=== PATIENT | male | born 1950 | race Caucasian/White ===

== ENCOUNTER 2019-08-29 05:34 | Emergency (ER) | payer MEDICARE, BC ==
[2019-08-29] MEDS ORDERED: ONDANSETRON HCL INJ/PF 4 MG/2 ML SDV IV ONE (06:14)
[2019-08-29] MEDS ORDERED: FENTANYL CITRATE INJ/PF 100 MCG/2 ML AMPUL IV ONE (06:14)
[2019-08-29 06:25] LABS: ABSOLUTE MONOCYTES (AUTO) 0.8 10^3/uL (0.1-1.4); ABSOLUTE NEUT (AUTO) 7.2 10^3/uL (1.7-8.2); BASOPHILS % (AUTO) 0.4 % (0-2); EOSINOPHILS % (AUTO) 0.4 % (0-6); HEMATOCRIT 42.4 % (37.9-51.0); HEMOGLOBIN 14.4 g/dL (13.5-17.0); LYMPHOCYTES % (AUTO) 10.7 % (13-45); MEAN CORPUSCULAR HEMOGLOBIN 34.6 pg (27.0-33.4); MEAN CORPUSCULAR HGB CONC 33.9 g/dL (32.0-36.0); MEAN CORPUSCULAR VOLUME 102 fl (80-97); MONOCYTES % (AUTO) 8.6 % (3-13); PLATELET COUNT 194 10^3/uL (150-450); RED BLOOD COUNT 4.15 10^6/uL (4.35-5.55); RED CELL DISTRIBUTION WIDTH 13.2 % (11.5-14.0); SEGMENTED NEUTROPHILS % (AUTO) 79.9 % (42-78); TOTAL CELLS COUNTED % (AUTO) 100 %
--- NOTE | 2019-08-29 06:28 | ER Document Report ---
ED GI/ - General Chief Complaint: Upper Abdominal Pain Stated Complaint: NAUSEA/ABDOMINAL PAIN Time Seen by Provider: 08/29/19 06:25 Primary Care Provider: YAZAN HAUSER MD [ACTIVE STAFF] - Follow up as needed Notes: Patient is a 69-year-old male history of hypertension and hyperlipidemia presents to the emergency department for right upper abdominal pain. Patient states he has had right upper abdominal stabbing pain for the last 24 hours. He is also admitting to generalized nausea with one episode of vomiting nonbloody nonbilious prior to arrival to the emergency room. Patient's denying any diarrhea or fevers. He is denying any dysuria. Patient does have a surgical history of an umbilical hernia repair. Patient's denying any chest pain or respiratory distress. He is denying any tearing or ripping feelings in his chest or mid abdomen. Patient takes lisinopril, atorvastatin TRAVEL OUTSIDE OF THE [place] IN LAST 30 DAYS: No - Related Data Allergies/Adverse Reactions: No Known Allergies Allergy (Verified 08/29/19 05:46) Home Medications: Gabapentin. Melatonin. Lisinopril. cholesterol med Past Medical History - General Information source: Patient - Social History Smoking Status: Former Smoker Chew tobacco use (# tins/day): No Frequency of alcohol use: Rare Drug Abuse: None Family History: Reviewed & Not Pertinent Patient has suicidal ideation: No Patient has homicidal ideation: No Review of Systems - Review of Systems Constitutional: denies: Fever EENT: No symptoms reported Cardiovascular: See HPI Respiratory: No symptoms reported Gastrointestinal: See HPI Genitourinary: No symptoms reported Male Genitourinary: No symptoms reported Musculoskeletal: denies: Back pain Skin: No symptoms reported Hematologic/Lymphatic: No symptoms reported Neurological/Psychological: No symptoms reported Physical Exam - Vital signs Vitals: Temp Pulse Resp BP Pulse Ox 98.2 F 77 17 185/93 H 98 08/29/19 05:40 08/29/19 05:40 08/29/19 05:40 08/29/19 05:40 08/29/19 05:40 - Notes Notes: GENERAL: Alert, interacts well. No acute distress. HEAD: Normocephalic, atraumatic. EYES: Pupils equal, round, and reactive to light. Extraocular movements intact. ENT: Oral mucosa moist, tongue midline. NECK: Full range of motion. Supple. Trachea midline. LUNGS: Clear to auscultation bilaterally, no wheezes, rales, or rhonchi. No respiratory distress. HEART: Regular rate and rhythm. No murmur ABDOMEN: Soft, right upper quadrant abdominal pain noted, otherwise abdominal exam benign. Non-distended. Bowel sounds present in all 4 quadrants. EXTREMITIES: Moves all 4 extremities spontaneously. No edema, normal radial and dorsalis pedis pulses bilaterally. No cyanosis. BACK: no cervical, thoracic, lumbar midline tenderness. No saddle anesthesia, normal distal neurovascular exam. No CVA tenderness noted bilaterally. NEUROLOGICAL: Alert and oriented x3. Normal speech. cranial nerves II through XII grossly intact. PSYCH: Normal affect, normal mood. SKIN: Warm, dry, normal turgor. No rashes or lesions noted. Course - Re-evaluation Re-evalutation: 08/29/19 08:19 Laboratory 08/29/19 08/29/19 08/29/19 06:08 06:08 06:15 WBC 9.0 RBC 4.15 L Hgb 14.4 Hct 42.4 MCV 102 H MCH 34.6 H MCHC 33.9 RDW 13.2 Plt Count 194 Lymph % (Auto) 10.7 L Mayes % (Auto) 8.6 Eos % (Auto) 0.4 Baso % (Auto) 0.4 Absolute Neuts (auto) 7.2 Absolute Lymphs (auto) 1.0 Absolute Monos (auto) 0.8 Absolute Eos (auto) 0.0 Absolute Basos (auto) 0.0 Seg Neutrophils % 79.9 H Sodium 139.4 Potassium 4.3 Chloride 103 Carbon Dioxide 27 Anion Gap 9 BUN 14 Creatinine 0.66 Est GFR ( Amer) > 60 Est GFR (MDRD) Non-Af > 60 Glucose 125 H Calcium 9.8 Total Bilirubin 1.0 Direct Bilirubin 0.1 Neonat Total Bilirubin Not Reportable Neonat Direct Bilirubin Not Reportable Neonat Indirect Bili Not Reportable AST 28 ALT 19 Alkaline Phosphatase 55 Total Protein 7.4 Albumin 4.5 Lipase 464.3 H Urine Color YELLOW Urine Appearance CLEAR Urine pH 6.0 Ur Specific [place] 1.023 Urine Protein 30 H Urine Glucose (UA) NEGATIVE Urine Ketones 80 H Urine Blood SMALL H Urine Nitrite NEGATIVE Urine Bilirubin NEGATIVE Urine Urobilinogen NEGATIVE Ur Leukocyte Esterase NEGATIVE Urine WBC (Auto) 0 Urine RBC (Auto) 5 U Hyaline Cast (Auto) 1 Urine Mucus (Auto) FEW Urine Ascorbic Acid NEGATIVE Abdomen Ultrasound 08/29/19 06:13 IMPRESSION: Nonobstructing right-sided nephrolithiasis. No evidence of cholelithiasis or acute cholecystitis. copyright 2010 [employer]- All Rights Reserved Abdomen/Pelvis CT 08/29/19 06:14 IMPRESSION: 1. No evidence of acute intra-abdominal or intrapelvic pathology. 2. Multiple large bilateral renal cysts. 3. Punctate bilateral nonobstructing nephrolithiasis. 4. Moderate hiatal hernia. 5. Chronic mild to moderate wedge compression fracture of L1. Discussed with patient at bedside elevation in lipase. Discussed imaging results at bedside. Patient voices a pain medication has helped. Patient is concerned when he goes home that the pain will return. I have discussed with patient his need to follow-up with primary care provider in the next 12 hours. For repeat abdominal exam. I also discussed following up with gastroenterology. Patient continues without any chest pain, shortness of breath, diaphoresis. Patient's blood pressure has returned to a more suitable number upon discharge. States he is wishing to taper his home medications when he gets home. Patient stable for discharge. - Vital Signs Vital signs: Temp Pulse Resp BP Pulse Ox 98.6 F 64 16 158/83 H 100 08/29/19 07:52 08/29/19 07:52 08/29/19 07:52 08/29/19 07:52 08/29/19 07:52 - Laboratory Result Diagrams: 08/29/19 06:08 08/29/19 06:08 Laboratory results interpreted by me: 08/29/19 08/29/19 08/29/19 06:08 06:08 06:15 RBC 4.15 L MCV 102 H MCH 34.6 H Lymph % (Auto) 10.7 L Seg Neutrophils % 79.9 H Glucose 125 H Lipase 464.3 H Urine Protein 30 H Urine Ketones 80 H Urine Blood SMALL H Discharge - Discharge Clinical Impression: Right upper quadrant abdominal pain, Elevated lipase Condition: Stable Disposition: HOME, SELF-CARE Instructions: Abdominal Pain ([facility]) Additional Instructions: As we discussed you have been seen and treated in the emergency department for your right upper quadrant abdominal pain. Your testing reveals no abnormalities with your gallbladder. Your lipase which is an enzyme your pancreas but soft is elevated. This is something he should have a recheck to your primary care doctor's office. Please follow-up with your doctor in the next 12 to 24 hours. I have also provided phone numbers for gastroenterology. Please follow-up with them as well. Please return to the emergency room for any concerns. Referrals: YAZAN HAUSER MD [ACTIVE STAFF] - Follow up as needed YADY LEARY MD [ACTIVE STAFF] - Follow up as needed
[2019-08-29 06:38] LABS: ALBUMIN 4.5 g/dL (3.5-5.0); ALKALINE PHOSPHATASE 55 U/L (38-126); ANION GAP 9 (5-19); ASPARTATE AMINO TRANSFERASE 28 U/L (17-59); BILIRUBIN,DIRECT 0.1 mg/dL (0.0-0.4); BLOOD UREA NITROGEN 14 mg/dL (7-20); CALCIUM 9.8 mg/dL (8.4-10.2); CARBON DIOXIDE 27 mmol/L (22-30); CHLORIDE 103 mmol/L (98-107); GLUCOSE 125 mg/dL (75-110); POTASSIUM 4.3 mmol/L (3.6-5.0); TOTAL PROTEIN 7.4 g/dL (6.3-8.2)
[2019-08-29 06:53] LABS: APPEARANCE,URINE CLEAR; BILIRUBIN,URINE NEGATIVE (NEGATIVE); COLOR,URINE YELLOW; GLUCOSE, URINE NEGATIVE (NEGATIVE); KETONES,URINE 80 mg/dL (NEGATIVE); LEUKOCYTE ESTERASE,URINE NEGATIVE (NEGATIVE); NITRITE,URINE NEGATIVE (NEGATIVE); PROTEIN,URINE 30 mg/dL (NEGATIVE); URINE SPECIFIC GRAVITY 1.023; UROBILINOGEN,URINE NEGATIVE mg/dL (<2.0)
--- NOTE | 2019-08-29 07:27 | RADIOLOGY REPORT (SQ) ---
EXAM DESCRIPTION: US ABDOMEN LIMITED COMPLETED DATE/TME: 08/29/2019 06:13 CLINICAL HISTORY: 69 years, Male, RUQ pain COMPARISON: None. TECHNIQUE: Transabdominal ultrasound with grayscale and color images. LIMITATIONS: None. FINDINGS: The pancreas is not well-visualized. The visualized portions of the aorta and IVC appear unremarkable. The liver is normal in size, shape, and echotexture. The liver measures 14.3 cm. The main portal vein demonstrates normal hepatopedal flow. The gallbladder appears normal. No evidence of cholelithiasis, wall thickening, or pericholecystic fluid. No sonographic Mares sign was elicited. The common bile duct is normal in caliber measuring up to 4 mm in diameter. The right kidney measures 14.7 x 5.9 x 5.9 cm. The right kidney contains multiple cysts, the largest of which measures 6.2 x 4.3 x 5.8 cm. Right kidney contains shadowing echogenic foci which measure up to 1.1 cm. No hydronephrosis. IMPRESSION: Nonobstructing right-sided nephrolithiasis. No evidence of cholelithiasis or acute cholecystitis. copyright 2010 [employer]- All Rights Reserved
[2019-08-29 07:52] VITALS: BP 158/83
--- NOTE | 2019-08-29 08:03 | RADIOLOGY REPORT (SQ) ---
EXAM: CT abdomen and pelvis with IV contrast CLINICAL DATA: 69-year-old male with right upper quadrant and right lower quadrant pain TECHNICAL DATA: Axial CT imaging of the abdomen and pelvis was performed following the administration of intravenous contrast.. Sagittal and coronal reconstructed images were then performed. The CT study is performed according to ALARA (as low as reasonably achievable) or ALARA/IMAGE GENTLY, with automatic adjustment of mA and/or kV according to patient size. Performed on: 08/29/2019 at 7:31 AM. Comparison: Abdominal ultrasound performed on 08/29/2019 at 6:29 AM FINDINGS: Lung bases: The lung bases are clear. There is trace bibasilar atelectasis and/or fibrosis. Liver:The liver is normal in size and configuration. No focal hepatic abnormalities are identified. Liver attenuation is within normal limits. Spleen:The spleen is normal is size, configuration and attenuation. Gallbladder and bile duct: The gallbladder is well distended and unremarkable. There is no biliary ductal dilatation. Pancreas: The pancreas is grossly normal in size and configuration. Adrenal Glands:The adrenal glands are normal in size and configuration. Kidneys: The kidneys are normal in size. There are multiple sharply marginated bilateral hypodense renal mass lesions compatible with benign renal cysts. There is no evidence of hydronephrosis. There is punctate bilateral nonobstructing nephrolithiasis. Stomach:The stomach is grossly normal. There is a moderate hiatal hernia. Bowel:The bowel gas pattern is non specific and non obstructive. Appendix: The appendix is normal. Free air:There is no evidence of free air. Free fluid: There is no evidence of free fluid. Vasculature: The aorta is normal in caliber and contour. The inferior vena cava is grossly unremarkable. There are mild atherosclerotic calcifications along the abdominal aorta. Lymphadenopathy: No pathologic lymphadenopathy is identified. Bladder: The bladder is partially distended and smooth in contour. Reproductive: The prostate gland is mildly prominent. Bones: No acute osseous abnormalities are identified. There is a chronic mild to moderate wedge compression fracture of L1. There is degenerative spondylosis throughout the thoracolumbar spine. Soft tissues: No focal soft tissue abnormalities are identified. There are small fat-containing bilateral inguinal hernias. IMPRESSION: 1. No evidence of acute intra-abdominal or intrapelvic pathology. 2. Multiple large bilateral renal cysts. 3. Punctate bilateral nonobstructing nephrolithiasis. 4. Moderate hiatal hernia. 5. Chronic mild to moderate wedge compression fracture of L1.
[2019-08-29] MEDS ORDERED: ONDANSETRON ODT 4 MG TAB (6 TAB/ER DISP) PO PRN (08:22)
[2019-08-29] MEDS ORDERED: HYDROCODONE/ACETAMINOPHEN 5-325 MG (6 TAB/ER DISP) PO PRN (08:22)
== END 2019-08-29 08:35 | disposition home or self-care (01) ==
LOC: ER 05:34
DX: N20.0 Calculus of kidney (principal); K44.9 Diaphragmatic hernia without obstruction or gangrene; R10.11 Right upper quadrant pain; I10 Essential (primary) hypertension; R11.2 Nausea with vomiting, unspecified; R79.89 Other specified abnormal findings of blood chemistry; E78.5 Hyperlipidemia, unspecified; Z79.899 Other long term (current) drug therapy; Z87.891 Personal history of nicotine dependence
CPT/HCPCS: 99284; 96374; 96375; 36415; 83690; 85025; 80053; 81001; 76705; 74177; J3010; J2405; A9270 ×2